=== PATIENT | female | born 1945 | race Asian ===

== ENCOUNTER 2020-08-30 15:35 | Inpatient (IN) | payer MEDICARE, OTHER ==
[~2020-08-30] VITALS: Ht 157.5 cm; Wt 37.2 kg
[~2020-08-30 15:35] MED LIST: ATEN-72 PO; METF-444 PO; SIMV-43 PO; [UNRECOGNIZED DRUG - OTHER] OP
[2020-08-30 16:50] LABS: BASOPHILS % (AUTO) 0.4 % (0.0-2.0); EOSINOPHILS % (AUTO) 0.1 % (1.0-6.0); HEMATOCRIT 32.8 % (36-46); HEMOGLOBIN 10.1 g/dL (12.0-16.0); LYMPHOCYTES # (AUTO) 1.1 K/uL (1.0-4.8); LYMPHOCYTES % (AUTO) 13.6 % (22.0-44.0); MEAN CORPUSCULAR HEMOGLOBIN 20.3 pg (26.0-34.0); MEAN CORPUSCULAR HGB CONC 30.9 G/dL (31.0-37.0); MEAN CORPUSCULAR VOLUME 66 fL (80-100); MONOCYTES # (AUTO) 0.3 K/uL (0.1-1.0); MONOCYTES % (AUTO) 3.2 % (2.0-9.0); NEUTROPHILS # (AUTO) 6.6 K/uL (1.8-7.7); NEUTROPHILS % (AUTO) 82.7 % (40.0-70.0); PLATELET COUNT (AUTO) 185 K/uL (150-450); RED BLOOD CELL COUNT(AUTO) 4.99 MIL/uL (4.00-5.20); RED CELL DISTRIBUTION WIDTH 14.3 % (11.5-14.5)
[2020-08-30 17:14] LABS: B-TYPE NATRIURETIC PEPTIDE 130 pg/mL (0-100)
[2020-08-30 17:25] LABS: ALANINE AMINOTRANSFERASE 16 U/L (12-78); ALBUMIN 3.7 g/dL (3.4-5.0); ALKALINE PHOSPHATASE 65 U/L (46-116); ANION GAP 11 mmol/L (8-16); ASPARTATE AMINOTRANSFERASE 19 U/L (15-37); BILIRUBIN,TOTAL 1.4 mg/dL (0.1-1.0); CALCIUM, TOTAL 8.7 mg/dL (8.8-10.5); CARBON DIOXIDE 24 mmol/L (22-29); CHLORIDE 85 mmol/L (98-107); CREATINE KINASE, TOTAL ONLY 192 U/L (26-192); CREATININE 0.79 mg/dL (0.60-1.30); GLUCOSE,RANDOM 142 mg/dL (70-110); LIPASE 128 U/L (73-393); POTASSIUM 3.3 mmol/L (3.5-5.1); UREA NITROGEN, BLOOD 11 mg/dL (7-18)
[2020-08-30 17:27] LABS: GLOMERULAR FILTR. RATE CALC > 60 mL/min (>60); SODIUM SERUM 120 mmol/L (136-145)
[2020-08-30] MEDS ORDERED: SODIUM CHLORIDE 0.9% 1,000 ML IV ONE (17:45)
[2020-08-30 18:16] LABS: GLUCOSE,POINT OF CARE 155 MG/DL (70-110)
[2020-08-30 18:33] LABS: APPEARANCE,URINE CLEAR (CLEAR); BILIRUBIN,URINE NEGATIVE (NEGATIVE); GLUCOSE, URINE (UA) NEGATIVE (NEGATIVE); KETONES,URINE TRACE mg/dL (NEGATIVE); LEUKOCYTE ESTERASE ,URINE NEGATIVE (NEGATIVE); NITRATE,URINE NEGATIVE (NEGATIVE); OCCULT BLOOD,URINE LARGE (NEGATIVE); PROTEIN,URINE POS 1+ (NEGATIVE); UROBILINOGEN,URINE 0.2 mg/dL (<=1.0)
[2020-08-30 18:53] LABS: BACTERIA,URINE None Seen /HPF (None Seen); SQUAMOUS EPITHELIAL CELL,UR None Seen /LPF (None Seen); WBC,URINE 0-2 /HPF (0-5)
[2020-08-30] MEDS ORDERED: 0.9% SODIUM CHLORIDE 10 ML SYRINGE IVP PRN (19:15)
[2020-08-30] MEDS ORDERED: ONDANSETRON HCL 4 MG/2 ML VIAL IVP PRN ×2 (19:15→20:45)
[2020-08-30] MEDS ORDERED: ACETAMINOPHEN 325 MG TABLET PO PRN ×2 (19:15→20:45)
[2020-08-30] MEDS ORDERED: POTASSIUM CHLORIDE 20 MEQ ER TABLET PO ONE (19:15)
[2020-08-30] MEDS ORDERED: BISACODYL 10 MG RECTAL RECTAL SUPPOSITORY PR PRN (20:45)
[2020-08-30] MEDS ORDERED: MAGNESIUM HYDROXIDE SUSPENSION 30 ML UDCUP PO PRN (20:45)
[2020-08-30] MEDS ORDERED: ZOLPIDEM TARTRATE 5 MG TABLET PO PRN (20:45)
[2020-08-30] MEDS ORDERED: DEXTROSE 50%-WATER 25 GM/50 ML SYRINGE IVP PRN (20:45)
[2020-08-30] MEDS ORDERED: INSULIN LISPRO 100 UNITS/ML SQ PRN (20:45)
[2020-08-30] MEDS ORDERED: MORPHINE SULFATE 2 MG/ML SYRINGE IVP PRN (20:45)
[2020-08-30] MEDS ORDERED: HYDROCODONE/ACETAMINOPHEN 5-325 MG TABLET PO PRN (20:45)
[2020-08-30] MEDS ORDERED: ALBUTEROL SULFATE 2.5 MG/0.5 ML NEB SOLUTION NEB PRN (20:45)
[2020-08-30] MEDS ORDERED: IPRATROPIUM BROMIDE 0.5 MG/2.5 ML NEB SOLUTION NEB PRN (20:45)
[2020-08-30] MEDS ORDERED: SIMVASTATIN 20 MG TABLET PO SCH (21:00)
[2020-08-30] MEDS: BETAXOLOL HCL 0.5% OU SCH (21:36)
[2020-08-30] MEDS: DOCUSATE SODIUM 100 MG CAPSULE PO SCH (21:36)
[2020-08-30 22:43] VITALS: BP 146/67
[2020-08-30 23:00] LABS: ANION GAP 10 mmol/L (8-16); CALCIUM, TOTAL 8.8 mg/dL (8.8-10.5); CARBON DIOXIDE 24 mmol/L (22-29); CHLORIDE 91 mmol/L (98-107); CREATININE 0.83 mg/dL (0.60-1.30); GLUCOSE,RANDOM 116 mg/dL (70-110); POTASSIUM 4.2 mmol/L (3.5-5.1); SODIUM SERUM 125 mmol/L (136-145); UREA NITROGEN, BLOOD 10 mg/dL (7-18)
[2020-08-30 23:04] LABS: GLOMERULAR FILTR. RATE CALC > 60 mL/min (>60)
[2020-08-31] MEDS: HEPARIN SODIUM,PORCINE 5,000 UNITS/ML VIAL SQ SCH ×2 (00:18→08:23)
[2020-08-31] MEDS ORDERED: INFLUENZA VIRUS VACCINE QVS 2020-21 (6MO+)/PF 60 MCG/0.5 ML SYRINGE IM ONE (01:30)
[2020-08-31 04:07] VITALS: BP 118/62
[2020-08-31 06:56] LABS: BASOPHILS % (AUTO) 0.3 % (0.0-2.0); EOSINOPHILS % (AUTO) 0.2 % (1.0-6.0); HEMOGLOBIN 11.8 g/dL (12.0-16.0); LYMPHOCYTES # (AUTO) 1.5 K/uL (1.0-4.8); LYMPHOCYTES % (AUTO) 26.8 % (22.0-44.0); MEAN CORPUSCULAR HEMOGLOBIN 21.2 pg (26.0-34.0); MEAN CORPUSCULAR HGB CONC 31.9 G/dL (31.0-37.0); MEAN CORPUSCULAR VOLUME 66 fL (80-100); MONOCYTES # (AUTO) 0.3 K/uL (0.1-1.0); MONOCYTES % (AUTO) 6.2 % (2.0-9.0); NEUTROPHILS # (AUTO) 3.7 K/uL (1.8-7.7); NEUTROPHILS % (AUTO) 66.5 % (40.0-70.0); PLATELET COUNT (AUTO) 227 K/uL (150-450); RED BLOOD CELL COUNT(AUTO) 5.57 MIL/uL (4.00-5.20); RED CELL DISTRIBUTION WIDTH 14.8 % (11.5-14.5)
[2020-08-31 07:16] VITALS: BP 119/56
[2020-08-31 07:19] LABS: ALBUMIN 3.7 g/dL (3.4-5.0); BILIRUBIN,TOTAL 1.5 mg/dL (0.1-1.0); CALCIUM, TOTAL 9.4 mg/dL (8.8-10.5); CREATININE 0.93 mg/dL (0.60-1.30); POTASSIUM 3.7 mmol/L (3.5-5.1); TOTAL PROTEIN, SERUM 7.6 g/dL (6.4-8.2)
[2020-08-31 08:14] LABS: GLUCOMETER DEV NAME(LOC) 5S.1; GLUCOSE,POINT OF CARE 92 MG/DL (70-110)
[2020-08-31] MEDS: BETAXOLOL HCL 0.5% OU SCH (08:23)
[2020-08-31] MEDS: DOCUSATE SODIUM 100 MG CAPSULE PO SCH (08:24)
[2020-08-31] MEDS ORDERED: ATENOLOL 100 MG TABLET PO SCH (09:00)
[2020-08-31 11:53] LABS: GLUCOMETER DEV NAME(LOC) 5S.1; GLUCOSE,POINT OF CARE 89 MG/DL (70-110)
[2020-08-31 12:05] VITALS: BP 134/68
== END 2020-08-31 13:00 | disposition home or self-care (01) | DRG 641 ==
LOC: EMS 15:37 → 5S 20:40
PROVIDERS: ADMIT Hospitalist; ATTEND Hospitalist
DX: E87.1 Hypo-osmolality and hyponatremia (principal); R17 Unspecified jaundice; D50.9 Iron deficiency anemia, unspecified; E11.9 Type 2 diabetes mellitus without complications; E78.5 Hyperlipidemia, unspecified; E87.6 Hypokalemia; E86.1 Hypovolemia; I10 Essential (primary) hypertension; R19.7 Diarrhea, unspecified; Z23 Encounter for immunization; Z88.8 Allergy status to other drugs, medicaments and biological substances; Z88.2 Allergy status to sulfonamides; Z79.899 Other long term (current) drug therapy
CPT/HCPCS: 83930; 83935; 84300; 93005; J1644; J7030; 36415-L1; 36415-TC; 71045-TC

== ENCOUNTER 2021-04-08 12:16 | Emergency (ER) | payer MEDICARE, OTHER ==
[~2021-04-08] VITALS: Ht 157.5 cm; Wt 45.0 kg
[~2021-04-08 12:16] MED LIST changes: -ATEN-72 PO
[2021-04-08] MEDS ORDERED: LIDOCAINE 5% TRANSDERMAL PATCH TD ONE ×2 (13:45→14:15)
[2021-04-08] MEDS ORDERED: ACETAMINOPHEN 325 MG TABLET PO ONE (13:45)
[2021-04-08 16:50] VITALS: BP 125/80
== END 2021-04-08 17:09 | disposition home or self-care (01) ==
LOC: EMS 12:16
DX: M79.605 Pain in left leg (principal); E11.9 Type 2 diabetes mellitus without complications; I10 Essential (primary) hypertension; Z88.6 Allergy status to analgesic agent; Z88.1 Allergy status to other antibiotic agents; Z79.84 Long term (current) use of oral hypoglycemic drugs
CPT/HCPCS: 93971; 99284; Z7502; Z7610